=== PATIENT | female | born 1975 | race Caucasian/White ===

== ENCOUNTER 2020-07-02 20:35 | Emergency (ER) | payer MEDICARE, MEDICAID ==
[~2020-07-02] VITALS: Ht 165.1 cm; Wt 54.0 kg
[2020-07-02] MEDS ORDERED: ASPIRIN 81MG TABLET PO ONE (22:30)
[2020-07-02 23:17] LABS: BASOPHILS % 0.9 % (0.0-2.0); EOSINOPHILS % 0.8 % (0.0-5.0); HEMATOCRIT. 33.6 % (36.0-48.0); HEMOGLOBIN. 10.5 g/dL (12.0-16.0); LYMPHOCYTES % 24.5 % (20.0-50.0); MEAN CORPUSCULAR HEMOGLOBIN 23.5 pg (28.0-32.0); MEAN CORPUSCULAR VOLUME 74.8 fL (81.0-99.0); MEAN PLATELET VOLUME 9.7 fl (7.4-10.4); MONOCYTES % 8.8 % (2.0-8.0); PLATELET 227 x1000/uL (130-400); RED BLOOD CELL COUNT 4.49 mill/uL (4.2-5.4)
[2020-07-02 23:25] LABS: CHLORIDE 105 mEq/L (98-107)
[2020-07-02 23:28] LABS: HCG SCREEN NEGATIVE
[2020-07-03 01:15] VITALS: BP 129/78
== END 2020-07-03 01:46 | disposition left against medical advice (07) ==
LOC: ER 20:35
DX: R07.89 Other chest pain (principal); F41.9 Anxiety disorder, unspecified; I10 Essential (primary) hypertension; Z98.890 Other specified postprocedural states
CPT/HCPCS: 36415; 71045; 80053; 83880; 84484; 84703; 85025; 93005; 99283; 99284